=== PATIENT | male | born 2000 | race Hispanic/Latino ===

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

== ENCOUNTER 2019-11-23 07:06 | Emergency (ER) | payer SELFPAY ==
[2019-11-23] MEDS ORDERED: SODIUM CHLORIDE 0.9% (FLUSH) 10 ML SYG IV PRN (07:18)
[2019-11-23] MEDS ORDERED: SODIUM CHLORIDE 0.9% 1000ML 1,000 ML IVS PRN (07:18)
--- NOTE | 2019-11-23 07:57 | ED.PDOC ---
History of Present Illness - General Chief Complaint: Diabetic Complaint Stated Complaint: elevated blood sugar Time Seen by Provider: 11/23/19 07:18 Source: patient, RN notes reviewed, Vital Signs reviewed Exam Limitations: no limitations - History of Present Illness Initial Comments: Patient is a 19-year-old male who presents with complaints of high blood sugar. Patient states that he has had trouble keeping his blood sugars down for a while. He denies any fever, chills, nausea, vomiting, diarrhea, cough, headache, dizziness or shortness of breath. Patient states that he is utilizing his insulin. Patient does not know what type of insulin he is on. Patient states that his blood sugar was over 550 this morning. Patient does admit to some dietary indiscretion as he is eating more pasta dishes recently. Timing/Duration: unsure Severity: moderate Improving Factors: nothing Worsening Factors: nothing Allergies/Adverse Reactions: Allergies Ibuprofen [From Motrin] Allergy (Severe, Verified 09/22/18 18:11) Anaphylaxis Home Medications: Ambulatory Orders Fluoxetine HCl [PROzac] 20 mg PO DAILY 08/31/18 Lisinopril 20 mg PO DAILY #30 tab 09/03/18 Acetamin W/Cod #3 Tab [Tylenol w/CODEINE #3] 1 ea PO Q4HR PRN #20 tab 09/22/18 Amoxicillin [Amoxil] 1,000 mg PO BID 10 Days #40 cap 09/22/18 Insulin Detemir [Levemir] 26 unit SUBCU BEDTIME 09/22/18 Insulin Lispro [Humalog] 0 unit SC AC PRN 09/22/18 Insulin Detemir [Levemir] 26 unit SUBCU BEDTIME #1 pen 11/23/19 Insulin Lispro [HumaLOG] See Protocol SUBCU AC #1 pen 11/23/19 Review of Systems - Review of Systems Constitutional: States: see HPI, malaise. Denies: chills, diaphoresis, fever EENTM: States: no symptoms reported. Denies: eye pain, double vision, nose congestion, throat swelling, mouth swelling Respiratory: States: no symptoms reported. Denies: cough, short of breath, wheezing Cardiology: States: no symptoms reported. Denies: chest pain, palpitations, syncope Gastrointestinal/Abdominal: States: no symptoms reported. Denies: abdominal pain, diarrhea, nausea, vomiting Genitourinary: States: no symptoms reported. Denies: discharge, dysuria, frequency Musculoskeletal: States: no symptoms reported. Denies: back pain, joint swelling, neck pain Skin: States: no symptoms reported. Denies: change in color, rash Neurological: States: no symptoms reported. Denies: headache, paresthesia, tingling, tremors Endocrine: States: increased thirst, increased urine Hematologic/Lymphatic: States: no symptoms reported All other Systems: Reviewed and Negative Past Medical History (General) - Patient Medical History Hx Seizures: No Hx Stroke: No Hx Dementia: No Hx Asthma: No Hx of COPD: No Hx Cardiac Disorders: No Hx Congestive Heart Failure: No Hx Pacemaker: No Hx Hypertension: Yes Hx Thyroid Disease: No Hx Diabetes: Yes Hx Gastroesophageal Reflux: No Hx Renal Disease: No Hx Cancer: No Hx of HIV: No Hx Hepatitis C: No Hx MRSA: No MRSA Source:: Wound Surgical History: no surgical history - Vaccination History Hx Tetanus, Diphtheria Vaccination: Yes Hx Influenza Vaccination: No Hx Pneumococcal Vaccination: No - Social History Hx Tobacco Use: No Hx Chewing Tobacco Use: No Hx Alcohol Use: No Hx Substance Use: No Hx Substance Use Treatment: No Hx Depression: No Hx Physical Abuse: No Hx Emotional Abuse: No Hx Suspected Abuse: No - Female History Patient : No Family Medical History - Family History Mother Living Status: Still Living Hx Family Asthma: No Hx Family Diabetes: Yes - parents Hx Family Cancer: Yes - breast-mom Physical Exam - Physical Exam General Appearance: Alert, Comfortable, Well Developed, Well Groomed, Well Hydrated, Well Nourished Eye Exam: bilateral normal Ears, Nose, Throat: hearing grossly normal, normal ENT inspection, normal pharynx Neck: non-tender, full range of motion, supple, normal inspection Respiratory: chest non-tender, lungs clear, normal breath sounds, no respiratory distress, no accessory muscle use Cardiovascular/Chest: normal peripheral pulses, regular rate, rhythm, no edema, no gallop, no JVD, no murmur Peripheral Pulses: radial,right: 2+, radial,left: 2+ Gastrointestinal/Abdominal: normal bowel sounds, non tender, soft, no organomegaly, no pulsatile mass Back Exam: normal inspection, no CVA tenderness, no vertebral tenderness Extremity: normal range of motion, non-tender, normal inspection, no pedal edema, no calf tenderness Neurologic: hadoop admin II-XII nml as tested, no motor/sensory deficits, alert, normal mood/affect, oriented x 3 Skin Exam: normal color, warm/dry Lymphatic: no adenopathy Progress - Progress Progress: Differential diagnosis: DKA, dietary indiscretion, hyperglycemia, pneumonia among others. 11/23/19 09:33 Patient is much improved. Blood sugar has gone from over 650 down to under 400. Plan on discharge home with a referral to the [facility]. Will refill patient's scripts as needed. Plan on follow-up within the next 3 days. I have discussed this plan of care with the patient he voices understanding and agreement. Jeffy Meyers M.D. #[id number] - Results/Orders Results/Orders: EXAM DESCRIPTION: Chest,1 View CLINICAL HISTORY: 19 years Male, hyperglycemia COMPARISON: Previous study June 10, 2014 TECHNIQUE: AP portable chest. FINDINGS: Heart size is normal with normal pulmonary vascularity. No consolidating infiltrate. No pulmonary mass or worrisome nodule. No pneumothorax or pleural effusion. Bones are unremarkable. IMPRESSION: No acute process is identified in the chest. Electronically signed by: Eduin Bagley MD 11/23/2019 8:04 11/23/19 07:18 Sodium Chloride 0.9% (Flush) [Saline Flush Syringe] 10 ml IV PRN PRN Sodium Chloride 0.9% 1000ML [Ns 1000 ml] 1,000 ml IVS ONCE 11/23/19 07:19 Pulse Oximetry Assessment DAILY 11/23/19 07:21 HEMOGLOBIN A1C Stat 11/23/19 08:43 Sodium Chloride 0.9% 1000ML [Ns 1000 ml] 1,000 ml IVS ONCE 11/23/19 09:00 Pulse Ox Daily Laboratory Results - last 24 hr 11/23/19 11/23/19 11/23/19 06:39 07:15 07:18 WBC RBC Hgb Hct MCV MCH MCHC RDW Plt Count MPV Absolute Neuts (auto) Absolute Lymphs (auto) Absolute Monos (auto) Absolute Eos (auto) Absolute Basos (auto) Neutrophils % Lymphocytes % Monocytes % Eosinophils % Basophils % pCO2 47 pO2 32 L* HCO3 24.8 ABG pH 7.336 L ABG O2 Saturation 58.3 L* ABG Base Excess -1.4 ABG Deoxyhemoglobin 40.8 H Oxyhemoglobin % 57.0 L Carboxyhemoglobin % 1.0 Methemoglobin % Sat 1.2 Calc Total Hemoglobin 14.6 Sodium Potassium Chloride Carbon Dioxide Anion Gap BUN Creatinine BUN/Creatinine Ratio POC Glucose > 400 H* Random Glucose Cancelled Hemoglobin A1c Serum Osmolality Calcium Total Bilirubin AST ALT Alkaline Phosphatase Serum Total Protein Albumin Globulin Albumin/Globulin Ratio Urine Color Urine Appearance Urine pH Ur Specific Grandin Urine Protein Urine Glucose (UA) Urine Ketones Urine Blood Urine Nitrite Urine Bilirubin Urine Urobilinogen Ur Leukocyte Esterase Urine RBC Urine WBC Ur Epithelial Cells Urine Bacteria Serum Ketones 11/23/19 11/23/19 11/23/19 07:20 07:20 07:20 WBC 6.0 RBC 4.73 Hgb 14.6 Hct 41.8 L MCV 88.3 MCH 30.9 MCHC 34.9 RDW 12.5 Plt Count 256 MPV 8.6 Absolute Neuts (auto) 3.20 Absolute Lymphs (auto) 2.20 Absolute Monos (auto) 0.40 Absolute Eos (auto) 0.20 Absolute Basos (auto) 0.00 Neutrophils % 53.4 Lymphocytes % 36.2 Monocytes % 6.7 Eosinophils % 3.0 Basophils % 0.7 pCO2 pO2 HCO3 ABG pH ABG O2 Saturation ABG Base Excess ABG Deoxyhemoglobin Oxyhemoglobin % Carboxyhemoglobin % Methemoglobin % Sat Calc Total Hemoglobin Sodium 127 L Potassium 4.4 Chloride 95 L Carbon Dioxide 24 Anion Gap 12.4 BUN 11 Creatinine 0.69 BUN/Creatinine Ratio 15.9 POC Glucose Random Glucose 631 H* Hemoglobin A1c 12.6 H Serum Osmolality 284.0 Calcium 8.6 Total Bilirubin 0.5 AST 14 ALT 21 Alkaline Phosphatase 127 Serum Total Protein 6.8 Albumin 3.8 Globulin 3.0 Albumin/Globulin Ratio 1.3 Urine Color Urine Appearance Urine pH Ur Specific Grandin Urine Protein Urine Glucose (UA) Urine Ketones Urine Blood Urine Nitrite Urine Bilirubin Urine Urobilinogen Ur Leukocyte Esterase Urine RBC Urine WBC Ur Epithelial Cells Urine Bacteria Serum Ketones Negative 11/23/19 11/23/19 07:55 09:13 WBC RBC Hgb Hct MCV MCH MCHC RDW Plt Count MPV Absolute Neuts (auto) Absolute Lymphs (auto) Absolute Monos (auto) Absolute Eos (auto) Absolute Basos (auto) Neutrophils % Lymphocytes % Monocytes % Eosinophils % Basophils % pCO2 pO2 HCO3 ABG pH ABG O2 Saturation ABG Base Excess ABG Deoxyhemoglobin Oxyhemoglobin % Carboxyhemoglobin % Methemoglobin % Sat Calc Total Hemoglobin Sodium Potassium Chloride Carbon Dioxide Anion Gap BUN Creatinine BUN/Creatinine Ratio POC Glucose 379 H Random Glucose Hemoglobin A1c Serum Osmolality Calcium Total Bilirubin AST ALT Alkaline Phosphatase Serum Total Protein Albumin Globulin Albumin/Globulin Ratio Urine Color Yellow Urine Appearance Clear Urine pH 5.5 Ur Specific Grandin 1.010 Urine Protein Negative Urine Glucose (UA) >=1000 H Urine Ketones Negative Urine Blood Negative Urine Nitrite Negative Urine Bilirubin Negative Urine Urobilinogen 0.2 Ur Leukocyte Esterase Negative Urine RBC 0 Urine WBC 0-1 Ur Epithelial Cells 0-1 Urine Bacteria 0 Serum Ketones Departure - Departure Clinical Impression: Hyperglycemia due to type 1 diabetes mellitus, Nonadherence with dietary restriction Time of Disposition: 10:03 Disposition: Discharge to Home or Self Care Condition: Good Departure Forms: ED Discharge - Pt. Copy, Patient Portal Self Enrollment Instructions: DI for Diabetes Type 1 -- Adult Diet: diabetic diet Activity: increase activity as tolerated Referrals: Ramiro Dee MD [Primary Care Provider] - 1-5 Days Prescriptions: Insulin Detemir [Levemir] 26 unit SUBCU BEDTIME #1 pen Insulin Lispro [HumaLOG] See Protocol SUBCU AC #1 pen Home Medications: Ambulatory Orders Fluoxetine HCl [PROzac] 20 mg PO DAILY 08/31/18 Lisinopril 20 mg PO DAILY #30 tab 09/03/18 Acetamin W/Cod #3 Tab [Tylenol w/CODEINE #3] 1 ea PO Q4HR PRN #20 tab 09/22/18 Amoxicillin [Amoxil] 1,000 mg PO BID 10 Days #40 cap 09/22/18 Insulin Detemir [Levemir] 26 unit SUBCU BEDTIME 09/22/18 Insulin Lispro [Humalog] 0 unit SC AC PRN 09/22/18 Insulin Detemir [Levemir] 26 unit SUBCU BEDTIME #1 pen 11/23/19 Insulin Lispro [HumaLOG] See Protocol SUBCU AC #1 pen 11/23/19
--- NOTE | 2019-11-23 08:05 | RAD ---
EXAM DESCRIPTION: Chest,1 View CLINICAL HISTORY: 19 years Male, hyperglycemia COMPARISON: Previous study June 10, 2014 TECHNIQUE: AP portable chest. FINDINGS: Heart size is normal with normal pulmonary vascularity. No consolidating infiltrate. No pulmonary mass or worrisome nodule. No pneumothorax or pleural effusion. Bones are unremarkable. IMPRESSION: No acute process is identified in the chest. Electronically signed by: Eduin Bagley MD 11/23/2019 8:04 AM CDT
[2019-11-23] MEDS ORDERED: INSULIN, REG.(HUMAN) 100 U/ML VIAL IV ONE (08:07)
[2019-11-23] MEDS ORDERED: POTASSIUM CHLORIDE 20 MEQ TAB PO ONE (08:07)
[2019-11-23] MEDS ORDERED: SODIUM CHLORIDE 0.9% 1000ML 1,000 ML IVS ONE (08:43)
[2019-11-23 10:19] VITALS: BP 136/89; TEMP 97.8; O2SAT 98
== END 2019-11-23 10:17 | disposition home or self-care (01) ==
LOC: ER 07:06
DX: E10.65 Type 1 diabetes mellitus with hyperglycemia (principal); Z91.19 Patient's noncompliance with other medical treatment and regimen; I10 Essential (primary) hypertension; Z79.4 Long term (current) use of insulin; Z79.899 Other long term (current) drug therapy
CPT/HCPCS: 36415; 36416; 71045; 80053; 81001; 82009; 82803; 82805; 82948; 83036; 85025; J7030

== ENCOUNTER 2020-02-13 19:32 | Emergency (ER) | payer OTHER ==
[2020-02-13 19:44] VITALS: BP 148/89; TEMP 99.3
--- NOTE | 2020-02-13 19:45 | ED.PDOC ---
History of Present Illness - General Time Seen by Provider: 02/13/20 19:35 Additional Information: Patient, with her diabetes a presents to the ER after he was stepped on his left chest by a cow, Patient arrived POV denies any shortness of breath admits also an abrasion on his right lower lip area, Denies any head trauma denies losing consciousness Patient also denies cigarettes alcohol or drug - History of Present Illness Occurred: just prior to arrival Pain Location: chest Method of Injury: direct blow Improving Factors: nothing Worsening Factors: nothing Loss of Consciousness: no loss of consciousness Associated Symptoms (Fall): denies symptoms Allergies/Adverse Reactions: Allergies Ibuprofen [From Motrin] Allergy (Severe, Verified 02/13/20 19:44) Anaphylaxis Home Medications: Ambulatory Orders Fluoxetine HCl [PROzac] 20 mg PO DAILY 08/31/18 Lisinopril 20 mg PO DAILY #30 tab 09/03/18 Acetamin W/Cod #3 Tab [Tylenol w/CODEINE #3] 1 ea PO Q4HR PRN #20 tab 09/22/18 Amoxicillin [Amoxil] 1,000 mg PO BID 10 Days #40 cap 09/22/18 Insulin Detemir [Levemir] 26 unit SUBCU BEDTIME 09/22/18 Insulin Lispro [Humalog] 0 unit SC AC PRN 09/22/18 Insulin Detemir [Levemir] 26 unit SUBCU BEDTIME #1 pen 11/23/19 Insulin Lispro [HumaLOG] See Protocol SUBCU AC #1 pen 11/23/19 Acetaminophen W/ Codeine [Tylenol W/ CODEINE #3] 1 ea PO Q6HR #20 02/13/20 Review of Systems - Review of Systems Constitutional: States: no symptoms reported EENTM: States: no symptoms reported Respiratory: States: no symptoms reported Cardiology: States: no symptoms reported Gastrointestinal/Abdominal: States: no symptoms reported Genitourinary: States: no symptoms reported Musculoskeletal: States: no symptoms reported Skin: States: no symptoms reported Neurological: States: no symptoms reported Endocrine: States: no symptoms reported Hematologic/Lymphatic: States: no symptoms reported Past Medical History (General) - Patient Medical History Hx Seizures: No Hx Stroke: No Hx Dementia: No Hx Asthma: No Hx of COPD: No Hx Cardiac Disorders: No Hx Congestive Heart Failure: No Hx Pacemaker: No Hx Hypertension: Yes Hx Thyroid Disease: No Hx Diabetes: Yes Hx Gastroesophageal Reflux: No Hx Renal Disease: No Hx Cancer: No Hx of HIV: No Hx Hepatitis C: No Hx MRSA: No MRSA Source:: Wound - Vaccination History Hx Tetanus, Diphtheria Vaccination: Yes Hx Influenza Vaccination: No Hx Pneumococcal Vaccination: No - Social History Hx Tobacco Use: No Hx Chewing Tobacco Use: No Hx Alcohol Use: No Hx Substance Use: No Hx Substance Use Treatment: No Hx Depression: No Hx Physical Abuse: No Hx Emotional Abuse: No Hx Suspected Abuse: No - Female History Patient : No Family Medical History - Family History Mother Living Status: Still Living Hx Family Asthma: No Hx Family Diabetes: Yes - parents Hx Family Cancer: Yes - breast-mom Physical Exam - Physical Exam General Appearance: Alert, Well Developed, Well Groomed, Well Hydrated, Well Nourished Head Injury: no evidence of injury Eye Exam: bilateral normal ENT Exam: hearing grossly normal, no evidence of ENT injury, no dental injury Neck Exam: non-tender, full range of motion, normal alignment, normal inspection, abnormal alignment, limited range of motion Cardiovascular/Respiratory: regular rate, rhythm, no M/R/G, normal peripheral pulses, no JVD, normal breath sounds, no respiratory distress, other - There is a contusion noted patient's left side of her chest no subcutaneous emphysema trach is midline clear to school patient bilaterally Gastrointestinal/Abdominal: normal bowel sounds, non tender, soft, no organomegaly, abnormal bowel sounds Back Exam: normal inspection, no CVA tenderness, no vertebral tenderness Neurologic: inspector and mender II-XII nml as tested, no motor/sensory deficits, alert, oriented x 3 Skin Exam: normal color Progress - Progress Progress: Regular [id number] male patient presents to the ER after he was involved in an accident when a cow stepped on his chest, patient was complaining of chest discomfort did have an operation on his right lower lip, nonsuturable, but patient did not appear any respiratory distress, I got an EKG that did not show evidence of PVCs, no evidence of acute ischemia, a chest x-ray that did not show any evidence of pneumothorax or hemothorax, no rib fractures The patient looks well does not be in any distress has no respiratory issues patient be sent home with Tylenol 3 but I did explain to the mother and the patient that he may still have a small pneumothorax that is not seen on x-ray but usually this type of pneumothorax are not necessarily admitted in the hospital, but I instructed the patient and the family that patient will need to come back to the ER immediately if there is any fever chills chest pain shortness of breath or any other concerns 02/13/20 21:54 Departure - Departure Clinical Impression: Chest wall contusion Qualifiers: Encounter type: initial encounter Laterality: left Qualified Code(s): S20.212A - Contusion of left front wall of thorax, initial encounter Disposition: Discharge to Home or Self Care Condition: Good Referrals: Ramiro Dee MD [Primary Care Provider] - 1-2 Weeks Prescriptions: Acetaminophen W/ Codeine [Tylenol W/ CODEINE #3] 1 ea PO Q6HR #20 Home Medications: Ambulatory Orders Fluoxetine HCl [PROzac] 20 mg PO DAILY 08/31/18 Lisinopril 20 mg PO DAILY #30 tab 09/03/18 Acetamin W/Cod #3 Tab [Tylenol w/CODEINE #3] 1 ea PO Q4HR PRN #20 tab 09/22/18 Amoxicillin [Amoxil] 1,000 mg PO BID 10 Days #40 cap 09/22/18 Insulin Detemir [Levemir] 26 unit SUBCU BEDTIME 09/22/18 Insulin Lispro [Humalog] 0 unit SC AC PRN 09/22/18 Insulin Detemir [Levemir] 26 unit SUBCU BEDTIME #1 pen 11/23/19 Insulin Lispro [HumaLOG] See Protocol SUBCU AC #1 pen 11/23/19 Acetaminophen W/ Codeine [Tylenol W/ CODEINE #3] 1 ea PO Q6HR #20 02/13/20 Additional Instructions: Small contusion to the immediately fever chills chest pain shortness of breath chest pressure or any concerns
--- NOTE | 2020-02-13 20:21 | RAD ---
EXAM DESCRIPTION: Chest,1 View CLINICAL HISTORY: 19 years Male, chest trauma COMPARISON: None TECHNIQUE: Single AP chest radiograph. FINDINGS: Clear lungs. No pneumothorax or pleural effusion. Normal cardiomediastinal contour. Normal osseous structures. IMPRESSION: 1. No acute cardiopulmonary process. Electronically signed by: Ankit Garnica MD 02/13/2020 8:20 PM CDT
--- NOTE | 2020-02-13 20:23 | RAD ---
EXAM DESCRIPTION: X-ray Ribs,Left 3 Views CLINICAL HISTORY: 19 years Male, trauma to the chest COMPARISON: 11/23/2019 TECHNIQUE: Three views of the left ribs, including AP and oblique views. FINDINGS: No evidence of displaced rib fracture. No pneumothorax. IMPRESSION: 1. No evidence of displaced rib fracture. Electronically signed by: Ankit Garnica MD 02/13/2020 8:21 PM CDT
[2020-02-13] MEDS ORDERED: KETOROLAC TROMETHAMINE INJ 30 MG/ML VIAL IM ONE (21:47)
[2020-02-13 22:05] VITALS: O2SAT 99
== END 2020-02-13 22:05 | disposition home or self-care (01) ==
LOC: ER 19:32
DX: S20.212A Contusion of left front wall of thorax, initial encounter (principal); R07.9 Chest pain, unspecified; S00.511A Abrasion of lip, initial encounter; I10 Essential (primary) hypertension; E11.9 Type 2 diabetes mellitus without complications; Z79.899 Other long term (current) drug therapy; Z79.4 Long term (current) use of insulin; W55.29XA Other contact with cow, initial encounter; Y92.9 Unspecified place or not applicable
CPT/HCPCS: 71045; 71101; 93005; J1885

== ENCOUNTER 2020-06-11 07:45 | Emergency (ER) | payer SELFPAY ==
[2020-06-11 07:54] VITALS: TEMP 97.3
--- NOTE | 2020-06-11 08:02 | ED.PDOC ---
History of Present Illness - General Chief Complaint: Respiratory Problem Stated Complaint: difficulty breathing Time Seen by Provider: 06/11/20 07:56 Source: patient, family Exam Limitations: no limitations - History of Present Illness Comments: Patient is a 19-year-old male who presents to ED with 1 week history of nonproductive cough, runny nose and feeling short of breath. He denies fever, chest pain, vomiting, diarrhea or body aches. He has taken cough drops with some relief. Denies any recent sick contacts or COVID exposure. Allergies/Adverse Reactions: Allergies Ibuprofen [From Motrin] Allergy (Severe, Verified 06/11/20 07:52) Anaphylaxis Home Medications: Ambulatory Orders Fluoxetine HCl [PROzac] 20 mg PO DAILY 08/31/18 Lisinopril 20 mg PO DAILY #30 tab 09/03/18 Acetamin W/Cod #3 Tab [Tylenol w/CODEINE #3] 1 ea PO Q4HR PRN #20 tab 09/22/18 Amoxicillin [Amoxil] 1,000 mg PO BID 10 Days #40 cap 09/22/18 Insulin Detemir [Levemir] 26 unit SUBCU BEDTIME 09/22/18 Insulin Lispro [Humalog] 0 unit SC AC PRN 09/22/18 Insulin Detemir [Levemir] 26 unit SUBCU BEDTIME #1 pen 11/23/19 Insulin Lispro [HumaLOG] See Protocol SUBCU AC #1 pen 11/23/19 Acetaminophen W/ Codeine [Tylenol W/ CODEINE #3] 1 ea PO Q6HR #20 02/13/20 Albuterol Inhaler [Ventolin Hfa Inhaler] 2 puff INH Q6H PRN #1 inh 06/11/20 Benzonatate Perles [Tessalon Perles] 100 mg PO Q6H PRN #20 cap 06/11/20 Prednisone 60 mg PO DAILY 5 Days #15 tab 06/11/20 Review of Systems - Review of Systems Constitutional: Denies: chills, fever, malaise EENTM: States: nose congestion, throat pain. Denies: ear pain Respiratory: States: cough, short of breath Cardiology: Denies: chest pain, palpitations Gastrointestinal/Abdominal: Denies: abdominal pain, nausea, vomiting Musculoskeletal: Denies: back pain, muscle pain Skin: Denies: rash All other Systems: Reviewed and Negative Past Medical History (General) - Patient Medical History Hx Seizures: No Hx Stroke: No Hx Dementia: No Hx Asthma: No Hx of COPD: No Hx Cardiac Disorders: No Hx Congestive Heart Failure: No Hx Pacemaker: No Hx Hypertension: Yes Hx Thyroid Disease: No Hx Diabetes: Yes Hx Gastroesophageal Reflux: No Hx Renal Disease: No Hx Cancer: No Hx of HIV: No Hx Hepatitis C: No Hx MRSA: No MRSA Source:: Wound - Vaccination History Hx Tetanus, Diphtheria Vaccination: Yes Hx Influenza Vaccination: No Hx Pneumococcal Vaccination: No - Social History Hx Tobacco Use: No Hx Chewing Tobacco Use: No Hx Alcohol Use: No Hx Substance Use: No Hx Substance Use Treatment: No Hx Depression: No Hx Physical Abuse: No Hx Emotional Abuse: No Hx Suspected Abuse: No - Activities of Daily Living Hospice Agency (if applicable):: None - Female History Patient is a Female of Child Bearing Age (10 -59 yrs old): No Patient : No Family Medical History - Family History Mother Living Status: Still Living Hx Family Asthma: No Hx Family Diabetes: Yes - parents Hx Family Cancer: Yes - breast-mom Physical Exam - Physical Exam General Appearance: Alert, Comfortable, No apparent distress ENT Exam: other - Oropharynx has mild erythema. no edema or exudates Neck: full range of motion, supple Respiratory: chest non-tender, lungs clear, normal breath sounds, no respiratory distress, no accessory muscle use Cardiovascular/Chest: regular rate, rhythm, no murmur Gastrointestinal/Abdominal: non tender, soft Extremity: normal inspection, no calf tenderness Neurologic: no motor/sensory deficits, alert, normal mood/affect Skin Exam: normal color, warm/dry Progress - Progress Progress: 06/11/20 08:05 Differential Diagnosis: PE, pneumonia, bronchitis, COVID 19, asthma, viral URI 06/11/20 08:55 Pt presents with cough and feeling short of breath. He has no respiratory distress in ED. O2 sat is 99% on room air. Chest x-ray is unremarkable. Will treat for viral upper respiratory infection and I have asked him to follow-up with his PCP in 1 to 2 days for recheck. Strict return precautions given. - Results/Orders Results/Orders: Chest XRAY EXAM DESCRIPTION: Chest,1 View CLINICAL HISTORY: cough FINDINGS/ IMPRESSION: Normal cardiomediastinal silhouette. No edema, infiltrates or effusions No pneumothorax. No acute bony abnormality Departure - Departure Clinical Impression: Acute bronchitis Qualifiers: Bronchitis organism: unspecified organism Qualified Code(s): J20.9 - Acute bronchitis, unspecified Time of Disposition: 08:56 Disposition: Discharge to Home or Self Care Condition: Good Departure Forms: ED Discharge - Pt. Copy, Patient Portal Self Enrollment Instructions: Acute Bronchitis, Adult (DC) Diet: resume usual diet Activity: increase activity as tolerated Referrals: Ramiro Dee MD [Primary Care Provider] - 1-2 Weeks Prescriptions: Prednisone 60 mg PO DAILY 5 Days #15 tab Benzonatate Perles [Tessalon Perles] 100 mg PO Q6H PRN #20 cap PRN Reason: Cough Albuterol Inhaler [Ventolin Hfa Inhaler] 2 puff INH Q6H PRN #1 inh PRN Reason: Wheezing Home Medications: Ambulatory Orders Fluoxetine HCl [PROzac] 20 mg PO DAILY 08/31/18 Lisinopril 20 mg PO DAILY #30 tab 09/03/18 Acetamin W/Cod #3 Tab [Tylenol w/CODEINE #3] 1 ea PO Q4HR PRN #20 tab 09/22/18 Amoxicillin [Amoxil] 1,000 mg PO BID 10 Days #40 cap 09/22/18 Insulin Detemir [Levemir] 26 unit SUBCU BEDTIME 09/22/18 Insulin Lispro [Humalog] 0 unit SC AC PRN 09/22/18 Insulin Detemir [Levemir] 26 unit SUBCU BEDTIME #1 pen 11/23/19 Insulin Lispro [HumaLOG] See Protocol SUBCU AC #1 pen 11/23/19 Acetaminophen W/ Codeine [Tylenol W/ CODEINE #3] 1 ea PO Q6HR #20 02/13/20 Albuterol Inhaler [Ventolin Hfa Inhaler] 2 puff INH Q6H PRN #1 inh 06/11/20 Benzonatate Perles [Tessalon Perles] 100 mg PO Q6H PRN #20 cap 06/11/20 Prednisone 60 mg PO DAILY 5 Days #15 tab 06/11/20
--- NOTE | 2020-06-11 08:53 | RAD ---
EXAM DESCRIPTION: Chest,1 View CLINICAL HISTORY: cough FINDINGS/ IMPRESSION: Normal cardiomediastinal silhouette. No edema, infiltrates or effusions No pneumothorax. No acute bony abnormality Electronically signed by: Atilio Ochoa MD 06/11/2020 8:51 AM CDT
[2020-06-11 11:44] VITALS: BP 135/82; O2SAT 98
== END 2020-06-11 09:00 | disposition home or self-care (01) ==
LOC: ER 07:45
DX: J20.9 Acute bronchitis, unspecified (principal); E11.9 Type 2 diabetes mellitus without complications; I10 Essential (primary) hypertension; Z79.4 Long term (current) use of insulin; Z79.899 Other long term (current) drug therapy; Z88.6 Allergy status to analgesic agent